=== PATIENT | female | born 1940 | race Caucasian/White ===

== ENCOUNTER → 2017-06-05 | Outpatient (CLI) | payer MEDICARE, OTHER | END | disposition home or self-care (01) | LOC: CFH 12:59 | PROVIDERS: ATTEND Family Medicine | DX: Z01.811 Encounter for preprocedural respiratory examination (principal); M41.84 Other forms of scoliosis, thoracic region | CPT/HCPCS: 71046 ==

== ENCOUNTER → 2017-06-06 | Outpatient (CLI) | payer MEDICARE, OTHER ==
[2017-06-06 11:46] LABS: FIO2 ROOM AIR %
== END | disposition home or self-care (01) ==
LOC: LAB 11:24
PROVIDERS: ATTEND Family Medicine
DX: Z01.818 Encounter for other preprocedural examination (principal)
CPT/HCPCS: 36600; 82803

== ENCOUNTER → 2017-06-16 | Outpatient (CLI) | payer MEDICARE, OTHER ==
[~2017-06-16] MED LIST: ASPI1TAB31 PO; ATEN50TA41 PO; ATOR40TA78 PO; DIAZ10TA4 PO; GABA300C10 PO
[2017-06-16 12:11] LABS: BASOPHILS # (AUTO) 0.04 x10^3/uL (0-0.1); BASOPHILS % (AUTO) 1 % (0-1); EOSINOPHILS # (AUTO) 0.08 x10^3/uL (0-0.4); EOSINOPHILS % (AUTO) 1 % (1-7); LYMPHOCYTES # (AUTO) 1.87 x10^3/uL (1-3.4); LYMPHOCYTES % (AUTO) 26 % (22-44); MD NO; MEAN CORPUSCULAR HEMOGLOBIN 29.5 pg (27.0-34.8); MEAN CORPUSCULAR HGB CONC 33.2 g/dL (32.4-35.8); MEAN PLATELET VOLUME 8.6 fL (7.4-10.4); MONOCYTES # (AUTO) 0.54 x10^3/uL (0.2-0.8); MONOCYTES % (AUTO) 8 % (2-9); NEUTROPHILS # (AUTO) 4.67 x10^3/uL (1.8-6.8); NEUTROPHILS % (AUTO) 65 % (42-75); PLATELET COUNT 222 x10^3/uL (130-400); RED BLOOD COUNT 5.61 x10^6/uL (3.82-5.3); RED CELL DISTRIBUTION WIDTH 13.9 % (9.6-15.2)
[2017-06-16 12:22] LABS: ALANINE AMINOTRANSFERASE 20 U/L (12-78); ALBUMIN 4.1 g/dL (3.4-5.0); ANION GAP 6 mmol/L (5-15); CALCIUM 9.1 mg/dL (8.5-10.1); CHLORIDE 110 mmol/L (98-107); CREATININE 0.56 mg/dL (0.55-1.02)
[2017-06-16 12:24] LABS: ALKALINE PHOSPHATASE 90 U/L (45-117); BILIRUBIN,TOTAL 0.6 mg/dL (0.2-1.0); TOTAL PROTEIN 7.8 g/dL (6.4-8.2)
[2017-06-16 12:24] LABS: CULTURE INDICATED? YES; MICROSCOPIC INDICATED
== END | disposition home or self-care (01) ==
LOC: STAR 10:33
PROVIDERS: ATTEND Orthopaedic Surgery
DX: Z01.818 Encounter for other preprocedural examination (principal); M16.11 Unilateral primary osteoarthritis, right hip
CPT/HCPCS: 36415; 80053; 81001; 85025; 87077; 87081; 87086; 87147; 87186; 87806; 93005; G0475

== ENCOUNTER → 2017-08-05 | Outpatient (CLI) | payer MEDICARE, OTHER ==
[~2017-08-05] MED LIST changes: +ATEN25TA PO
[2017-08-05 14:34] LABS: BASOPHILS # (AUTO) 0.04 x10^3/uL (0-0.1); BASOPHILS % (AUTO) 1 % (0-1); EOSINOPHILS # (AUTO) 0.15 x10^3/uL (0-0.4); EOSINOPHILS % (AUTO) 2 % (1-7); LYMPHOCYTES # (AUTO) 2.86 x10^3/uL (1-3.4); LYMPHOCYTES % (AUTO) 32 % (22-44); MD NO; MEAN CORPUSCULAR HEMOGLOBIN 29.6 pg (27.0-34.8); MEAN CORPUSCULAR VOLUME 89.8 fL (80-100); MEAN PLATELET VOLUME 8.6 fL (7.4-10.4); MONOCYTES # (AUTO) 0.81 x10^3/uL (0.2-0.8); MONOCYTES % (AUTO) 9 % (2-9); NEUTROPHILS # (AUTO) 4.96 x10^3/uL (1.8-6.8); NEUTROPHILS % (AUTO) 56 % (42-75); PLATELET COUNT 256 x10^3/uL (130-400); RED BLOOD COUNT 5.61 x10^6/uL (3.82-5.3); RED CELL DISTRIBUTION WIDTH 14.9 % (9.6-15.2)
[2017-08-05 14:38] LABS: ALANINE AMINOTRANSFERASE 24 U/L (12-78); ANION GAP 5 mmol/L (5-15); CALCIUM 9.4 mg/dL (8.5-10.1); CHLORIDE 105 mmol/L (98-107)
[2017-08-05 14:39] LABS: MICROSCOPIC NOT IND
[2017-08-05 14:41] LABS: ALKALINE PHOSPHATASE 103 U/L (45-117); BILIRUBIN,TOTAL 0.5 mg/dL (0.2-1.0); CREATININE 0.63 mg/dL (0.55-1.02); TOTAL PROTEIN 7.6 g/dL (6.4-8.2)
[2017-08-05 14:42] LABS: CULTURE INDICATED? NO
== END | disposition home or self-care (01) ==
LOC: STAR 13:06
PROVIDERS: ATTEND Orthopaedic Surgery
DX: Z01.818 Encounter for other preprocedural examination (principal); M16.11 Unilateral primary osteoarthritis, right hip
CPT/HCPCS: 36415; 80053; 81003; 85025; 87081; 87806; G0475

== ENCOUNTER 2017-08-11 05:46 | Inpatient (IN) | payer MEDICARE, OTHER ==
[~2017-08-11] VITALS: Ht 157.5 cm; Wt 60.5 kg
[2017-08-11] MEDS ORDERED: VANCOMYCIN PER PHARMACY MC STA (06:03)
[2017-08-11] MEDS ORDERED: LACTATED RINGERS 1,000 ML IV SCH (06:17)
[2017-08-11 06:21] VITALS: BP 109/73
[2017-08-11] MEDS ORDERED: VANCOMYCIN PMX 1GM/200ML 200 ML IV ONE (06:30)
[2017-08-11] MEDS ORDERED: TRANEXAMIC ACID 100 MG/ML, 10ML ONE (06:54)
[2017-08-11] MEDS ORDERED: KETOROLAC 60 MG/2 ML ONE (06:54)
[2017-08-11] MEDS ORDERED: morphine SULFATE/PF 1 MG/ML, 10ML ONE (06:54)
[2017-08-11] MEDS ORDERED: ROPIvacaine/PF 0.2%, 20 ML ONE (06:54)
[2017-08-11] MEDS ORDERED: BACITRACIN 50,000 UNIT ONE (06:55)
[2017-08-11] MEDS ORDERED: SODIUM CHLORIDE 0.9% 100 ML ONE (06:55)
[2017-08-11] MEDS ORDERED: EPINEPHRINE 1 MG/ML, 1ML ONE (06:55)
[2017-08-11] MEDS ORDERED: MIDAZOLAM 1 MG/ML, 2ML ONE (07:14)
[2017-08-11] MEDS ORDERED: FENTANYL PF 100 MCG/2ML ONE (07:14)
[2017-08-11] MEDS ORDERED: ACETAMINOPHEN 500 MG TABLET PO ONE (07:30)
[2017-08-11] MEDS ORDERED: OXYcodone IR 5MG TABLET PO ONE (07:30)
[2017-08-11] MEDS ORDERED: ONDANSETRON ODT 8 MG PO ONE (07:30)
[2017-08-11] MEDS ORDERED: GABAPENTIN 300 MG CAPSULE PO ONE (07:30)
[2017-08-11] MEDS ORDERED: FAMOTIDINE 20 MG TABLET PO ONE (07:30)
[2017-08-11] MEDS ORDERED: HYDROcodone/APAP 7.5-325MG/15ML UDC PO PRN (08:30)
[2017-08-11] MEDS ORDERED: PROMETHAZINE 25 MG/ML, 1ML IV PRN (08:30)
[2017-08-11] MEDS ORDERED: HALOPERIDOL 5 MG/ML IV PRN (08:30)
[2017-08-11] MEDS ORDERED: OXYcodone 5 MG/5 ML ORAL.SOL UDC PO PRN (08:30)
[2017-08-11] MEDS ORDERED: ALBUTEROL/IPRATROPIUM 2.5MG/0.5MG, 3 ML NPPB PRN (08:30)
[2017-08-11] MEDS ORDERED: MEPERIDINE/PF 25MG/0.5ML IVPush PRN (08:30)
[2017-08-11] MEDS ORDERED: LABETALOL 5MG/ML, 20ML IV PRN (08:30)
[2017-08-11] MEDS ORDERED: ALBUTEROL SULFATE 2.5 MG/3 ML NPPB PRN (08:30)
[2017-08-11] MEDS ORDERED: MIDAZOLAM 1 MG/ML, 2ML IV PRN (08:30)
[2017-08-11] MEDS ORDERED: HYDROmorphone 1 MG/ML, 1ML IV PRN (08:30)
[2017-08-11] MEDS ORDERED: EPHEDRINE 50 MG/ML, 1ML IVPush PRN (08:30)
[2017-08-11] MEDS ORDERED: FENTANYL PF 100 MCG/2ML IV PRN (08:30)
[2017-08-11] MEDS ORDERED: hydrALAzine 20 MG/ML, 1ML IV PRN (08:30)
[2017-08-11] MEDS ORDERED: GLYCOPYRROLATE 0.2MG/1ML, 5ML ONE (08:49)
[2017-08-11] MEDS ORDERED: ONDANSETRON 2MG/ML, 2ML ONE (08:49)
[2017-08-11] MEDS ORDERED: CEFAZOLIN 1,000 MG ONE (08:49)
[2017-08-11] MEDS ORDERED: NEOSTIGMINE 1 MG/ML, 10ML ONE (08:49)
[2017-08-11] MEDS ORDERED: PROPOFOL 10 MG/ML, 20ML ONE (08:49)
[2017-08-11] MEDS ORDERED: SUCCINYLCHOLINE 20 MG/ML, 10ML ONE (08:49)
[2017-08-11] MEDS ORDERED: DEXAMETHASONE 4 MG/ML, 1ML ONE (08:49)
[2017-08-11] MEDS ORDERED: ONDANSETRON 2MG/ML, 2ML IVPush PRN (09:30)
[2017-08-11] MEDS ORDERED: VANCOMYCIN PMX 1GM/200ML 200 ML IVPB ONE (09:30)
[2017-08-11] MEDS ORDERED: DIPHENHYDRAMINE 50 MG CAPSULE PO PRN (09:30)
[2017-08-11] MEDS ORDERED: ZOLPIDEM 5MG TABLET PO PRN (09:30)
[2017-08-11] MEDS ORDERED: morphine SULFATE 10 MG/ML, 1ML IVPush PRN (09:30)
[2017-08-11] MEDS ORDERED: LORazepam 2 MG/ML, 1ML IVPush PRN (09:30)
[2017-08-11] MEDS ORDERED: TRANEXAMIC ACID 1,000 MG in SODIUM CHLORIDE 0.9% 100 ML IV ONE (09:30)
[2017-08-11] MEDS ORDERED: OXYcodone/APAP 7.5/325MG TABLET PO PRN (09:30)
[2017-08-11] MEDS ORDERED: ACETAMINOPHEN 325 MG TABLET PO PRN (09:30)
[2017-08-11] MEDS ORDERED: NICOTINE 14MG/24 HR PATCH.TD24 TD ONE (09:30)
[2017-08-11 10:27] VITALS: BP 110/63
[2017-08-11] MEDS: CEFAZOLIN PMX 1GM/50ML 50 ML IVPB SCH ×2 (10:34→15:58)
[2017-08-11] MEDS: D5%-0.45% NACL 1,000 ML IV SCH ×4 (10:35→22:50)
[2017-08-11 13:07] VITALS: BP 99/58
[2017-08-11 19:20] VITALS: BP 94/56
[2017-08-11 23:56] VITALS: BP 97/57
[2017-08-12] MEDS: CEFAZOLIN PMX 1GM/50ML 50 ML IVPB SCH (01:05)
[2017-08-12] MEDS: D5%-0.45% NACL 1,000 ML IV SCH ×3 (04:23→15:07)
[2017-08-12 05:50] VITALS: BP 93/53
[2017-08-12 06:48] VITALS: BP 87/48
[2017-08-12] MEDS ORDERED: ASA/APAP/ CAFFEINE TABLET PO PRN (10:30)
[2017-08-12 11:28] VITALS: BP 90/51
[2017-08-12 13:49] VITALS: BP 91/51
[2017-08-12] MEDS ORDERED: ASPIRIN 325 MG TABLET EC PO SCH (17:00)
[2017-08-12] MEDS ORDERED: DOCUSATE 100 MG CAPSULE PO SCH (21:00)
== END 2017-08-12 16:47 | disposition home or self-care (01) | DRG 470 ==
LOC: ORIP 05:46 → 4NOR 10:21 → ORIP 10:22 → 4NOR 10:23 → DCLOUNGE 08-12 16:30
PROVIDERS: ADMIT Orthopaedic Surgery; ATTEND Orthopaedic Surgery
PROC: 0SR90JZ Replacement of Right Hip Joint with Synthetic Substitute, Open Approach (ICD-10-PCS; principal; 2017-08-11 07:00)
DX: M16.11 Unilateral primary osteoarthritis, right hip (principal)
CPT/HCPCS: 36415; 85018; 86850; 86900; C1713; J0171; J0690; J1100; J1885; J2250; J2274; J2405; J2704; J2710; J2795; J3010; J3370; J3490; Q0162; C1776; J0330; J7120

== ENCOUNTER 2020-05-08 15:51 | Outpatient (CLI) | payer MEDICARE, OTHER | END 2020-05-08 23:59 | disposition home or self-care (01) | LOC: CVU 15:51 | PROVIDERS: ATTEND Internal Medicine Cardiovascular Disease | DX: I08.1 Rheumatic disorders of both mitral and tricuspid valves (principal); I27.9 Pulmonary heart disease, unspecified | CPT/HCPCS: 93306 ==